=== PATIENT | male | born 1940 | race Caucasian/White ===

== ENCOUNTER 2016-04-01 18:54 | Emergency (ER) | payer MEDICARE ==
[2016-04-01] MEDS ORDERED: IOPAMIDOL 370 (76%) IV.SOLN 150 ML IV ONE (18:55)
[2016-04-01 20:21] LABS: BASO # 0.1 K/mm3 (0.0-0.2); BASO % 0.5 % (0.2-1.0); EOS # 0.6 (0.0-0.5); EOS % 5.1 % (0.9-2.9); HEMATOCRIT 42.8 % (32.0-52.0); HEMOGLOBIN 14.3 gm/l (14.0-18.0); IMM NEUT # 0.1 K/mm3 (0-0.2); IMM NEUT% 0.4 % (0-1); LYMPH # 1.5 (1.0-4.8); LYMPH % 12.2 % (15-45); MEAN CELL VOLUME 86.8 fl (80.0-94.0); MEAN CORPUSCULAR HGB CONC 33.4 g/dl (33.0-37.0); MEAN PLATELET VOLUME 10.2 fl (7.4-10.4); MONO % 8.4 % (4-12); NEUT % 73.4 % (43-75); PLATELET COUNT 228 K/mm3 (130-400); RED CELL DISTRIBUTION WIDTH 12.9 % (11.5-14.5)
[2016-04-01 20:23] LABS: SPECIFIC GRAVITY 1.025 (1.001-1.030); URINE BILIRUBIN NEGATIVE (NEGATIVE); URINE BLOOD 1+ (NEGATIVE); URINE GLUCOSE (UA) 2+ (NEGATIVE); URINE LEUKOCYTE ESTERASE NEGATIVE (NEGATIVE); URINE NITRITE NEGATIVE (NEGATIVE); URINE PROTEIN 1+ (NEGATIVE); URINE UROBILINOGEN NORMAL (0-1 mg/dl)
[2016-04-01 20:28] LABS: URINE APPEARANCE CLEAR; URINE COLOR YELLOW
[2016-04-01 20:36] LABS: URINE BACTERIA RARE; URINE EPITHELIAL CELLS RARE /hpf; URINE RBC 0-2 /hpf; URINE WBC NEG /hpf
[2016-04-01 20:44] LABS: ALB/GLOB RATIO 1.1 (>1.0); ALBUMIN 3.7 gm/dL (3.5-5.7); CALCIUM 9.3 mg/dL (8.6-10.3)
--- NOTE | 2016-04-01 21:18 | CT ---
Name: JAZMYNE MONROE Exam: CT abdomen pelvis with contrast Comparison: None History: Left lower quadrant pain Procedure: Helical CT using multidetector technique was applied to the abdomen and pelvis during intravenous administration of 125 cc Isovue-[id number]. No oral contrast was given per ordering physician. An automated dose reduction technique was used to minimize patient radiation dose. Findings: CT abdomen (contrast enhanced): There is mild, right greater than left, bibasilar scar and/or atelectasis. Heart is not enlarged. There is no pericardial effusion. Fatty infiltration of liver is present. The gallbladder is surgically absent. There is no suspicious biliary dilation. Pancreas, spleen, adrenal glands, IVC and portal vein are within normal limits. 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 There is atherosclerosis of normal caliber aorta. 1.4 cm less renal cysts are present bilaterally. There is a moderate size hiatal hernia. Stomach and small bowel are within normal limits. There are several small calcifications scattered throughout the peritoneum compatible prior inflammatory process. 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 Small fat filled umbilical hernia is present. There is atrophy and fatty replacement of the right rectus abdominis muscle. CT pelvis (contrast enhanced): Bladder is nearly empty. Sigmoid diverticulosis is identified there is a short segment of diverticulitis of the proximal sigmoid colon with wall thickening and pericolonic stranding. There is no obstruction perforation or abscess. Small bowel and appendix are normal. There is been prior pelvic surgery. Vascular calcifications are identified. There is no adenopathy. Impression: 1. Short segment of acute diverticulitis of the proximal sigmoid colon without current evidence for perforation, abscess or obstruction. If there is been no recent colonoscopy, once the patient's symptoms have abated, consideration should be given to direct visualization to exclude an underlying mass. 2. Normal appendix 3. Prior abdominal and pelvic surgery including cholecystectomy. 4. Hiatal hernia 5. Fatty infiltration of the liver 6. 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
[2016-04-01] MEDS ORDERED: AMOX 875 MG/CLAV 125 MG 1 EACH TABLET ONE (22:11)
[2016-04-01] MEDS ORDERED: METRONIDAZOLE 500 MG/NS 100 ML 100 ML IV ONE (22:11)
[2016-04-01] MEDS ORDERED: HYDROMORPHONE HCL 0.5 MG/0.5 ML SYRINGE ONE (22:11)
== END 2016-04-01 18:55 | disposition home or self-care (01) ==
LOC: ED 18:54
DX: K57.92 Diverticulitis of intestine, part unspecified, without perforation or abscess without bleeding (principal); E11.9 Type 2 diabetes mellitus without complications; Z79.4 Long term (current) use of insulin; Z79.84 Long term (current) use of oral hypoglycemic drugs; Z85.46 Personal history of malignant neoplasm of prostate
CPT/HCPCS: 83605; 85025; 80053; 81001; 74177; 96375; 99284 ×2; 96365; A9270; Q9967; J1170